=== PATIENT | female | born 1965 | race African-American/Black ===

== ENCOUNTER 2023-10-20 02:44 | Inpatient (IN) | payer OTHER ==
[~2023-10-20] VITALS: Ht 167.6 cm; Wt 73.5 kg
[2023-10-20] VITALS (7 sets, daily range): BP systolic 137–166; PULSE 78–109; RESP 18–20; TEMP 97.5–98; O2SAT 90–96
[2023-10-20] MEDS ORDERED: AZITHROMYCIN 500 MG/VIAL (ZITHROMAX) IV ONE (03:30)
[2023-10-20 03:31] LABS: BLOOD GAS PCO2 42.4 mmHg (35.0-45.0); BLOOD GAS PH 7.391 (7.350-7.450)
[2023-10-20 03:32] LABS: ABG O2 SAT% ESTIMATE 88.5 % (94.0-100.0); ALLEN'S TEST POSITIVE (P); BLOOD GAS BASE EXCESS 0.1 mmol/L (-3.0-3.0); BLOOD GAS HCO3 25.1 mmol/L (21.0-27.0); BLOOD GAS PO2 55.3 mmHg (75.0-100.0)
[2023-10-20] MEDS: methylPREDNISolone SOD SUCC/PF 62.5 MG/ML VIAL IVP ONE (03:37)
[2023-10-20] MEDS: MAGNESIUM SULFATE 50 ML IV ONE (03:37)
[2023-10-20] MEDS: cefTRIAXone 1 GM IVPB PREMIX 50 ML IV ONE (03:39)
[2023-10-20] MEDS: ALBUTEROL SULFATE 0.083% 2.5 MG/3 ML VIAL.NEB INH ONE (03:43)
[2023-10-20 04:09] LABS: BASOPHILS # (AUTO) 0.1 K/uL (0.0-0.2); BASOPHILS % (AUTO) 0.5 % (0.0-2.0); CALCIUM 8.8 mg/dL (8.4-11.0); CREATININE 0.71 mg/dL (0.55-1.30); EOSINOPHILS # (AUTO) 0.5 K/uL (0.0-0.4); EOSINOPHILS % (AUTO) 3.2 % (0.0-4.0); HEMATOCRIT 47.9 % (36-48); HEMOGLOBIN 15.9 g/dL (12.0-16.0); LYMPHOCYTES # (AUTO) 2.6 K/uL (1.0-5.5); LYMPHOCYTES % (AUTO) 18.1 % (20.5-51.5); MEAN CORPUSCULAR HEMOGLOBIN 30 pg (27-31); MEAN CORPUSCULAR HGB CONC 33 % (32-36); MEAN CORPUSCULAR VOLUME 91 fL (79.0-98.0); MONOCYTES % (AUTO) 7.1 % (1.7-9.3); NEUTROPHILS # (AUTO) 10.2 K/uL (1.8-7.7); NEUTROPHILS % (AUTO) 71.1 % (40.0-70.0); PLATELET COUNT (AUTO) 293 K/uL (130-430); POTASSIUM 3.5 mmol/L (3.5-5.1); RED BLOOD CELL COUNT(AUTO) 5.25 MIL/uL (4.2-6.2); RED CELL DISTRIBUTION WIDTH 13.5 % (9.0-15.0); WHITE BLOOD COUNT (AUTO) 14.3 K/uL (4.8-10.8)
[2023-10-20 04:14] LABS: ALBUMIN 3.1 g/dL (3.4-4.8); BILIRUBIN,DIRECT 0.1 mg/dL (0.0-0.3); TOTAL BILIRUBIN 0.6 mg/dL (0.0-1.0); TOTAL PROTEIN, SERUM 7.1 g/dL (6.4-8.3)
[2023-10-20] MEDS: AZITHROMYCIN 500 MG in NS 250 ML IV ONE (04:38)
[2023-10-20] MEDS ORDERED: ACETAMINOPHEN 325 MG TABLET PO PRN (08:00)
[2023-10-20] MEDS ORDERED: ONDANSETRON HCL 4 MG/2 ML VIAL IVP PRN (08:00)
[2023-10-20 08:32] LABS: INFLUENZA TYPE B NEGATIVE (NEGATIVE)
[2023-10-20 08:33] LABS: INFLUENZA TYPE A Positive (NEGATIVE)
[2023-10-20] MEDS: amLODIPine BESYLATE 5 MG TABLET PO SCH (09:06)
[2023-10-20 10:08] LABS: PROTHROMBIN TIME 10.1 SECS (9.5-12.5)
[2023-10-20 10:34] LABS: BARBITURATE, URINE NEGATIVE (NEG <=200); METHAMPHETAMINES SCREEN,URINE NEGATIVE (NEG <=500); URINE AMPHETAMINE NEGATIVE (NEG <=500); URINE METHADONE NEGATIVE (NEG <=200)
[2023-10-20 10:35] LABS: BENZODIAZEPINE, URINE NEGATIVE (NEG <=150); CANNABINOID, URINE NEGATIVE (NEG <=50); COCAINE, URINE POSITIVE (NEG <=150); OPIATE, URINE NEGATIVE (NEG <=100); PHENCYCLIDINE SCREEN,URINE NEGATIVE (NEG <=25); URINE OXYCODONE SCREEN NEGATIVE (NEG <=100)
[2023-10-20 10:37] LABS: UR TRICYCLIC ANTIDEPRESSANTS NEGATIVE (NEG <=300)
[2023-10-20] MEDS: HEPARIN SODIUM,PORCINE 5,000 UNITS/ML VIAL SUBCUT SCH (10:37)
[2023-10-20] MEDS: BUDESONIDE 0.5 MG/2 ML AMPUL.NEB INH SCH (11:54)
[2023-10-20] MEDS: OSELTAMIVIR PHOSPHATE 75 MG CAPSULE PO ONE (14:13)
[2023-10-20] MEDS: ACETAMINOPHEN 325 MG TABLET PO PRN (18:09)
[2023-10-20] MEDS: MONTELUKAST 10 MG TABLET PO SCH (18:10)
[2023-10-20] MEDS: IPRATROPIUM BROM 0.5 MG/2.5 ML VIAL.NEB (ATROVENT) INH PRN (18:27)
[2023-10-20] MEDS: ALBUTEROL SULFATE 0.083% 2.5 MG/3 ML VIAL.NEB INH PRN (18:27)
[2023-10-20] MEDS: OSELTAMIVIR PHOSPHATE 75 MG CAPSULE PO SCH (23:48)
[2023-10-20] MEDS: METHYLPREDNISOLONE SOD SUCC 40 MG/ML VIAL IVP SCH (23:49)
[2023-10-21 01:00] VITALS: BP_SYST 132; PULSE 82; RESP 18; TEMP 98.7; O2SAT 96
[2023-10-21 05:14] LABS: BASOPHILS # (AUTO) 0.1 K/uL (0.0-0.2); BASOPHILS % (AUTO) 0.3 % (0.0-2.0); EOSINOPHILS # (AUTO) 0.1 K/uL (0.0-0.4); EOSINOPHILS % (AUTO) 0.3 % (0.0-4.0); HEMATOCRIT 44.7 % (36-48); HEMOGLOBIN 14.9 g/dL (12.0-16.0); LYMPHOCYTES # (AUTO) 2.8 K/uL (1.0-5.5); LYMPHOCYTES % (AUTO) 15.6 % (20.5-51.5); MEAN CORPUSCULAR HEMOGLOBIN 30 pg (27-31); MEAN CORPUSCULAR HGB CONC 33 % (32-36); MEAN CORPUSCULAR VOLUME 91 fL (79.0-98.0); MONOCYTES # (AUTO) 1.3 K/uL (0.0-1.0); MONOCYTES % (AUTO) 6.9 % (1.7-9.3); NEUTROPHILS % (AUTO) 76.9 % (40.0-70.0); PLATELET COUNT (AUTO) 303 K/uL (130-430); RED BLOOD CELL COUNT(AUTO) 4.92 MIL/uL (4.2-6.2); RED CELL DISTRIBUTION WIDTH 12.9 % (9.0-15.0); WHITE BLOOD COUNT (AUTO) 18.2 K/uL (4.8-10.8)
[2023-10-21 05:45] LABS: CREATININE 0.67 mg/dL (0.55-1.30); POTASSIUM 3.8 mmol/L (3.5-5.1)
[2023-10-21 07:33] VITALS: O2SAT 99
[2023-10-21 08:00] VITALS: BP_SYST 126; PULSE 80; RESP 18; TEMP 97.6; O2SAT 95
[2023-10-21] MEDS: HYDROcodone/ACETAMIN 5-325 MG TAB (NORCO/ VICODIN) PO PRN (08:27)
[2023-10-21 08:53] VITALS: O2SAT 95
[2023-10-21] MEDS: cefTRIAXone 1 GM in D5W 50 ML IV SCH (10:10)
[2023-10-21] MEDS: AZITHROMYCIN 500 MG in NS 250 ML IV SCH (11:22)
[2023-10-21 12:00] VITALS: BP_SYST 139; PULSE 64; RESP 18; TEMP 98.2; O2SAT 99
[2023-10-21] MEDS ORDERED: PRED20TA PO (12:19)
[2023-10-21] MEDS ORDERED: AMLO5TAB92 PO (12:19)
[2023-10-21] MEDS ORDERED: MONT-40 PO (12:19)
[2023-10-21] MEDS ORDERED: FLUT1AER INH (12:19)
[2023-10-21] MEDS ORDERED: ZIT250 PO (12:19)
[2023-10-21] MEDS ORDERED: OSEL75CA PO (12:19)
[2023-10-21] MEDS ORDERED: ALBMDI INH (12:19)
[2023-10-21 12:49] VITALS: BP_SYST 139; PULSE 64; RESP 18; TEMP 98.2; O2SAT 99
== END 2023-10-21 14:50 | disposition home or self-care (01) | DRG 140 ==
LOC: SED 02:44 → SMU 08:00
PROVIDERS: ADMIT Internal Medicine; ATTEND Internal Medicine
DX: J44.1 Chronic obstructive pulmonary disease with (acute) exacerbation (principal); J96.01 Acute respiratory failure with hypoxia; J10.00 Influenza due to other identified influenza virus with unspecified type of pneumonia; I10 Essential (primary) hypertension; F14.10 Cocaine abuse, uncomplicated; J44.0 Chronic obstructive pulmonary disease with (acute) lower respiratory infection; J18.9 Pneumonia, unspecified organism; Z20.822 Contact with and (suspected) exposure to COVID-19; Z91.199 Patient's noncompliance with other medical treatment and regimen due to unspecified reason; Z59.00 Homelessness unspecified
CPT/HCPCS: 36415; 36600; 71045; 80048; 80076; 80307; 82803; 83605; 83880; 84484; 85025; 85610; 85730; 87040; 93005; 94640; 94760; 99291; G9035; J0456; J0696; J1030; J1644; J2930; J3475; J7050; J7060; J7626